=== PATIENT | female | born 1975 | race Two or more races ===

== ENCOUNTER 2017-02-12 12:44 | Emergency (ER) | payer OTHER ==
--- NOTE | ~2017-02-12 | CR72 ---
[facility] Service of [facility] & [facility] RADIOLOGY TEXT RESULTS PATIENT: SHARAN GUZMÁN LOCATION: [facility] : 77 UNIT #: [id number] AGE: [address]: Allen Gutierrez MD SEX: F ORDER DR: [id number] [facility] [address] [place], [place] [address] [id number] MR#: [id number] Acc #: [id number] NAME: SHARAN GUZMÁN : 1975 SEX: F STUDY DATE/TIME: 02/12/2017 12:14 UNIT: [facility] ROOM: STUDY DESCRIPTION: CR Chest Single View Portable Attending Physician: Allen Gutierrez M.D. Ordering Physician: Allen Gutierrez M.D. MEDICAL IMAGING REPORT This report is preliminary unless electronic signature is present EXAM Portable chest INDICATION Shortness of breath and asthma starting this morning. FINDINGS Heart size is within normal limits. Overall lung volumes appear somewhat diminished which may reflect poor inspiratory effort. No pneumothorax, pleural effusion or definite acute infiltrate is seen. Dictated by... Kathleen Ribeiro M.D. THIS IS AN ELECTRONICALLY VERIFIED REPORT Kathleen Ribeiro M.D. at 02/15/2017 1:00 PM AFF/praneeth TD: 02/13/2017 07:36 JOB #: [id number] MEDICAL IMAGING REPORT Page 1 of 1 COPY
== END 2017-02-12 14:02 | disposition home or self-care (01) ==
LOC: CED 12:44
DX: J45.21 Mild intermittent asthma with (acute) exacerbation (principal); J45.22 Mild intermittent asthma with status asthmaticus
CPT/HCPCS: 71010; 94640; 96372; 99284; J2930

== ENCOUNTER 2017-03-08 07:09 | Emergency (ER) | payer OTHER | END 2017-03-08 08:59 | disposition home or self-care (01) | LOC: CED 07:09 | DX: R68.84 Jaw pain (principal); J45.901 Unspecified asthma with (acute) exacerbation; E07.9 Disorder of thyroid, unspecified; Z90.710 Acquired absence of both cervix and uterus; Z88.8 Allergy status to other drugs, medicaments and biological substances | CPT/HCPCS: 99282 ==